=== PATIENT | male | born 1950 | race Caucasian/White ===

== ENCOUNTER 2020-08-19 08:00 | Day surgery (SDC) | payer BC ==
[2020-08-16 11:15] VITALS: BMI 28.3
[2020-08-19] MEDS ORDERED: LIDOCAINE HCL/PF 2% SDV 5ML VIAL ONE (08:38)
[2020-08-19] MEDS ORDERED: PROPOFOL 20 ML ONE ×2 (08:38)
[2020-08-19 09:21] VITALS: TEMP 98
[2020-08-19 10:23] VITALS: BP 110/70; PULSE 79
--- NOTE | 2020-08-23 16:08 | PATH ---
Surgical Pathology Report Patient Name: VERONICA LEE [facility]. Rec. #: [id number] /Age/Gender: 1950 (Age: 69) / M Account: [id number] Location: [facility] Taken: 08/19/2020 Received: 08/19/2020 Reported: 08/23/2020 Physicians: Missael Gil M.D. Specimen(s) Received A: CECUM B: RIGHT COLON C: TRANSVERSE COLON D: LEFT COLON E: SIGMOID COLON F: RECTO SIGMOID COLON G: RECTUM Clinical History Ulcerative colitis Postoperative diagnosis: Ulcerative colitis, diverticulosis Final Diagnosis A. CECUM, BIOPSY: COLONIC MUCOSA WITH PROMINENT LYMPHOID AGGREGATES. NO ACTIVE INFLAMMATION, GRANULOMA, OR DYSPLASIA IDENTIFIED. B. COLON, RIGHT, BIOPSY: COLONIC MUCOSA WITH MILD ARCHITECTURAL DISTORTION, INCREASED CHRONIC INFLAMMATORY INFILTRATE AND ISOLATED POORLY FORMED GRANULOMA WITHIN LAMINA PROPRIA. NO ACTIVE INFLAMMATION OR DYSPLASIA IDENTIFIED. C. TRANSVERSE COLON, BIOPSY: COLONIC MUCOSA WITH MILD ARCHITECTURAL DISTORTION AND SMALL LYMPHOID AGGREGATES. NO ACTIVE INFLAMMATION, GRANULOMA, OR DYSPLASIA IDENTIFIED. D. COLON, LEFT, BIOPSY: COLONIC MUCOSA WITH MILD ARCHITECTURAL DISTORTION AND INCREASED CHRONIC INFLAMMATORY INFILTRATE WITHIN LAMINA PROPRIA. NO ACTIVE INFLAMMATION, GRANULOMA, OR DYSPLASIA IDENTIFIED. E. SIGMOID COLON, BIOPSY: COLONIC MUCOSA WITH MILD ARCHITECTURAL DISTORTION AND INCREASED CHRONIC INFLAMMATORY INFILTRATE INCLUDING SMALL LYMPHOID AGGREGATES WITHIN LAMINA PROPRIA. NO ACTIVE INFLAMMATION, GRANULOMA, OR DYSPLASIA IDENTIFIED. F. RECTOSIGMOID COLON, BIOPSY: COLONIC MUCOSA WITH SEVERE CHRONIC ACTIVE COLITIS. NO GRANULOMA OR DYSPLASIA IDENTIFIED. G. RECTUM, BIOPSY: COLONIC MUCOSA WITH MILD ARCHITECTURAL DISTORTION AND INCREASED INFLAMMATORY INFILTRATE INCLUDING PROMINENT LYMPHOID AGGREGATES WITHIN LAMINA PROPRIA. NO ACTIVE INFLAMMATION, GRANULOMA, OR DYSPLASIA IDENTIFIED. Comment: Overall findings are compatible with history of ulcerative colitis with focal activity in the rectosigmoid colon. Suggest clinical and endoscopic correlation. Electronically Signed Marni Oleary M.D. Gross Description A. Received in formalin, labeled "cecum" are 4 mejia, irregular portions of soft tissue ranging from 0.3-0.5 cm. in greatest dimension. The specimens are submitted in toto in one cassette. B. Received in formalin, labeled "right colon" are 4 mejia, irregular portions of soft tissue ranging from 0.2-0.4 cm. in greatest dimension. The specimens are submitted in toto in one cassette. C. Received in formalin, labeled "transverse colon" are 4 mejia, irregular portions of soft tissue ranging from 0.3-0.4 cm. in greatest dimension. The specimens are submitted in toto in one cassette. D. Received in formalin, labeled "left colon" are 4 mejia, irregular portions of soft tissue averaging 0.3 cm. in greatest dimension. The specimens are submitted in toto in one cassette. E. Received in formalin, labeled "sigmoid colon" are 4 mejia, irregular portions of soft tissue ranging from 0.2-0.4 cm. in greatest dimension. The specimens are submitted in toto in one cassette. F. Received in formalin, labeled "rectosigmoid colon" are 4 mejia, irregular portions of soft tissue ranging from 0.2-0.3 cm. in greatest dimension. The specimens are submitted in toto in one cassette. G. Received in formalin, labeled "rectum" are 4 mejia, irregular portions of soft tissue ranging from 0.2-0.3 cm. in greatest dimension. The specimens are submitted in toto in one cassette. 08/20/2020 saudi08/20/2020
== END 2020-08-19 10:15 | disposition home or self-care (01) ==
LOC: FASU-ENDO 08:00
PROVIDERS: ATTEND Internal Medicine Gastroenterology
PROC: 0DBL8ZX Excision of Transverse Colon, Via Natural or Artificial Opening Endoscopic, Diagnostic (ICD-10-PCS; 2020-08-19)
PROC: 0DBN8ZX Excision of Sigmoid Colon, Via Natural or Artificial Opening Endoscopic, Diagnostic (ICD-10-PCS; 2020-08-19)
PROC: 0DBP8ZX Excision of Rectum, Via Natural or Artificial Opening Endoscopic, Diagnostic (ICD-10-PCS; 2020-08-19)
PROC: 0DBM8ZX Excision of Descending Colon, Via Natural or Artificial Opening Endoscopic, Diagnostic (ICD-10-PCS; 2020-08-19)
PROC: 0DBH8ZX Excision of Cecum, Via Natural or Artificial Opening Endoscopic, Diagnostic (ICD-10-PCS; 2020-08-19)
PROC: 0DBK8ZX Excision of Ascending Colon, Via Natural or Artificial Opening Endoscopic, Diagnostic (ICD-10-PCS; principal; 2020-08-19 08:46)
DX: K52.89 Other specified noninfective gastroenteritis and colitis (principal); K57.30 Diverticulosis of large intestine without perforation or abscess without bleeding; K63.89 Other specified diseases of intestine; K62.89 Other specified diseases of anus and rectum; Z87.19 Personal history of other diseases of the digestive system
CPT/HCPCS: 88305-TC

== ENCOUNTER 2024-07-30 07:58 | Day surgery (SDC) | payer BC ==
[2024-07-25 15:16] VITALS: BMI 26.6
[2024-07-30 09:20] VITALS: RESP 18; TEMP 98
[2024-07-30 09:22] VITALS: BP 105/66; PULSE 72
== END 2024-07-30 09:42 | disposition home or self-care (01) ==
LOC: FASU-ENDO 07:58
PROVIDERS: ATTEND Internal Medicine Gastroenterology
PROC: 0DBL8ZX Excision of Transverse Colon, Via Natural or Artificial Opening Endoscopic, Diagnostic (ICD-10-PCS; 2024-07-30)
PROC: 0DBN8ZX Excision of Sigmoid Colon, Via Natural or Artificial Opening Endoscopic, Diagnostic (ICD-10-PCS; 2024-07-30)
PROC: 0DBP8ZX Excision of Rectum, Via Natural or Artificial Opening Endoscopic, Diagnostic (ICD-10-PCS; 2024-07-30)
PROC: 0DBM8ZX Excision of Descending Colon, Via Natural or Artificial Opening Endoscopic, Diagnostic (ICD-10-PCS; 2024-07-30)
PROC: 0DBH8ZX Excision of Cecum, Via Natural or Artificial Opening Endoscopic, Diagnostic (ICD-10-PCS; 2024-07-30)
PROC: 0DBK8ZX Excision of Ascending Colon, Via Natural or Artificial Opening Endoscopic, Diagnostic (ICD-10-PCS; principal; 2024-07-30 08:39)
DX: K52.89 Other specified noninfective gastroenteritis and colitis (principal); K62.89 Other specified diseases of anus and rectum; K57.30 Diverticulosis of large intestine without perforation or abscess without bleeding
CPT/HCPCS: 88305-TC